=== PATIENT | female | born 2000 | race African-American/Black ===

== ENCOUNTER 2019-04-01 16:22 | Emergency (ER) | payer OTHER ==
--- NOTE | 2019-04-01 19:31 | ED ---
Complex/Multi-Sys Presentation - History Of Current Complaint Chief Complaint: EDFluSymptoms Time Seen by Provider: 04/01/19 18:59 - Allergies/Home Medications Allergies/Adverse Reactions: Allergies Allergy/AdvReac Type Severity Reaction Status Date / Time No Known Allergies Allergy Verified 04/01/19 16:35 Home Medications: Home Medications NK [No Home Medications Reported] 04/01/19 [History Confirmed 04/01/19] PMH/Surg Hx/FS Hx/Imm Hx Respiratory History: Reports: Hx Asthma - Immunization History Immunizations Up to Date: Yes Infectious Disease History: No Infectious Disease History: Denies: Traveled Outside the [place] in Last 30 Days - Social History Alcohol Use: Occasionally Substance Use Type: Reports: None Smoking Status (MU): Never Smoked Tobacco Physical Exam Vital Signs On Initial Exam: Initial Vitals Temp Pulse Resp BP Pulse Ox 98.6 F 84 18 161/91 100 04/01/19 16:33 04/01/19 16:33 04/01/19 16:33 04/01/19 16:33 04/01/19 16:33 Diagnostics - Vital Signs Vital Signs Temp Pulse Resp BP Pulse Ox 04/01/19 18:32 98.8 F 77 18 129/74 100 04/01/19 16:33 98.6 F 84 18 161/91 100 - Laboratory Lab Statement: Any lab studies that have been ordered have been reviewed, and results considered in the medical decision making process. Discharge ED - Discharge Plan Referrals: No Primary Care Phys,NOPCP [Primary Care Provider] - - Attestation Statements Document Initiated by Scribe: Yes
--- NOTE | 2019-04-01 19:47 | ED ---
Influenza-Like Illness - HPI Summary HPI Summary: This pt is a 18 Y/O F presenting to [facility] with a CC of being sick for 3 weeks intermittently and states that she believes that she has a viral syndrome. She states that since 03/30/19 she has been coughing excessively and has been unable to sleep. She states that she had a fever 2 weeks ago and states that currently she has had no fever. She states that she has a sore throat. She denies any pain in her ears. She has a PMHx of Asthma and takes an albuterol inhaler. She has no aggravating factors or alleviating factors. She also states that she has a PMHx of MS and takes Gelena. - History of Current Complaint Chief Complaint: EDFluSymptoms Time Seen by Provider: 04/01/19 18:59 Hx Obtained From: Patient Onset/Duration: Gradual Onset, Lasting Weeks - 3, Still Present, Worse Since Severity: Mild Associated Signs & Symptoms: Negative - pain in her ears, Fever - states that she had one 2 weeks ago but is currently absent of a fever., Sore Throat - Allergy/Home Medications Allergies/Adverse Reactions: Allergies Allergy/AdvReac Type Severity Reaction Status Date / Time No Known Allergies Allergy Verified 04/01/19 16:35 Home Medications: Home Medications NK [No Home Medications Reported] 04/01/19 [History Confirmed 04/01/19] PMH/Surg Hx/FS Hx/Imm Hx Previously Healthy: Yes Respiratory History: Reports: Hx Asthma Neurological History: Reports: Other Neuro Impairments/Disorders - MS - Immunization History Immunizations Up to Date: Yes Infectious Disease History: No Infectious Disease History: Denies: Traveled Outside the [place] in Last 30 Days - Family History Known Family History: Positive: Diabetes - Father's side - Social History Occupation: Student - [employer] Lives: Dormitory/Roommates Alcohol Use: Occasionally Hx Substance Use: No Substance Use Type: Reports: None Hx Tobacco Use: No Smoking Status (MU): Never Smoked Tobacco Review of Systems Constitutional: Other - decreased sleep Positive: Fever - states that the highest ocurrance was 2 weeks ago Positive: Sore Throat. Negative: Ear Ache Positive: Cough All Other Systems Reviewed And Are Negative: Yes Physical Exam - Summary Physical Exam Summary: Constitutional: Well-developed, Well-nourished, Alert. (-) Distressed Skin: Warm, Dry HENT: Normocephalic; Atraumatic Eyes: Conjunctiva normal Neck: Musculoskeletal ROM normal neck. (-) JVD, (-) Stridor, (-) Nuchal rigidity Cardio: Rhythm regular, rate normal, Heart sounds normal; Intact distal pulses; Radial pulses are 2+ and symmetric. (-) Murmur Pulmonary/Chest wall: Effort normal. (-) Respiratory distress, (-) Wheezes, (-) Rales Abd: Soft, (-) tenderness, (-) Distension, (-) Guarding, (-) Rebound Musculoskeletal: (-) Edema Lymph: (-) Cervical adenopathy Neuro: Alert, Oriented x3 Psych: Mood and affect Normal Triage Information Reviewed: Yes Vital Signs On Initial Exam: Initial Vitals Temp Pulse Resp BP Pulse Ox 98.6 F 84 18 161/91 100 04/01/19 16:33 04/01/19 16:33 04/01/19 16:33 04/01/19 16:33 04/01/19 16:33 Vital Signs Reviewed: Yes Diagnostics - Vital Signs Vital Signs Temp Pulse Resp BP Pulse Ox 04/01/19 18:32 98.8 F 77 18 129/74 100 04/01/19 16:33 98.6 F 84 18 161/91 100 - Laboratory Lab Statement: Any lab studies that have been ordered have been reviewed, and results considered in the medical decision making process. - Radiology CXR Radiology Interpretation Completed By: Radiologist Summary of Radiographic Findings: No acute cardiopulmonary diseases. Reviewed by the ED physician. Flu Symptom Course/Dx - Course Course Of Treatment: This pt is a 18 Y/O F presenting to [facility] with a CC of being sick for 3 weeks intermittently and states that she believes that she has a viral syndrome. She states that since 03/30/19 she has been coughing excessively and has been unable to sleep. She had a fever 2 weeks ago but states that she has not had one since. All other abnormal lab results are not pertinent to current cc. She will be discharged home with a Dx of viral infection and instructed to follow up with the [facility] to receive a PCP in the area. - Diagnoses Provider Diagnoses: Viral infection Discharge ED - Sign-Out/Discharge Documenting (check all that apply): Patient Departure Patient Received Moderate/Deep Sedation with Procedure: No - Discharge Plan Condition: Stable Disposition: HOME Patient Education Materials: Viral Syndrome (ED) Referrals: [facility] [Outside] No Primary Care Phys,NOPCP [Primary Care Provider] - - Billing Disposition and Condition Condition: STABLE Disposition: Home - Attestation Statements Document Initiated by Scribe: Yes Documenting Scribe: Royce Roberts Provider For Whom Scribe is Documenting (Include Credential): Aron Farr MD Scribe Attestation: Royce Leal, scribed for Aron Farr MD on 04/02/19 at 0750. Status of Scribe Document: Viewed
[2019-04-01 20:04] VITALS: BP 121/77
== END 2019-04-01 20:03 | disposition home or self-care (01) ==
LOC: ED 16:22
DX: B34.9 Viral infection, unspecified (principal); J45.909 Unspecified asthma, uncomplicated; G35 Multiple sclerosis; Z79.899 Other long term (current) drug therapy
CPT/HCPCS: 71046; 99281

== ENCOUNTER 2019-09-04 20:21 | Emergency (ER) | payer MEDICAID ==
[2019-09-04 21:16] LABS: ABS Eosinophils 0.1 10^3/ul (0-0.6); ABS Lymphocytes 0.2 10^3/ul (1.0-4.8); ABS Monocytes 0.5 10^3/ul (0-0.8); ABS Neutrophils 4.1 10^3/ul (1.5-7.7); Eosinophil % 2.2 %; Hematocrit 36 % (35-47); Hemoglobin 12.3 g/dL (12.0-16.0); Lymphocyte % 3.9 %; Mean Corpuscular HGB Conc 34 g/dL (31-36); Mean Corpuscular Hemoglobin 30 pg (27-31); Mean Corpuscular Volume 88 fL (80-97); Mean Platelet Volume 8.7 fL (7.4-10.4); Platelet Count 228 10^3/uL (150-450); Red Cell Distribution Width 14 % (10-15); White Blood Count 4.9 10^3/uL (3.5-10.8)
[2019-09-04] MEDS ORDERED: Dicyclomine CAP* 10 MG PO ONE (21:17)
--- NOTE | 2019-09-04 21:31 | ED ---
Abdominal Pain/Female - HPI Summary HPI Summary: Patient is a 18 y/o F presenting to [facility] with complaints of lower abdominal pain since 1400 09/04/19. She characterizes the pain as "contraction-like". She states that the pain will temporarily resolve for a few minutes and return. Patient reports that this is the fourth similar episode of Sx that she has had in her life and that the episodes of pain typically last three days. She reports that she was evaluated for previous episodes, MRI imaging was done and it was incidentally found that she has MS. Some nausea secondary to the pain is noted. Patient denies fever, chills, vomiting, diarrhea, constipation, dysuria, hematuria, vaginal bleeding/discharge. LNMP was last week and started on . She notes Hx of asthma and scoliosis. PSHx of wisdom teeth removal noted. Patient is on Gilenya for her MS. NKDA reported. She denies cigarette, alcohol, and substance usage. Home medications and allergies are reviewed. Home Medications Medication Instructions Recorded Confirmed Type NK [No Home Medications Reported] 04/01/19 04/01/19 History - History of Current Complaint Chief Complaint: EDAbdPain Stated Complaint: ABD PAIN PER PT Time Seen by Provider: 09/04/19 21:01 Hx Obtained From: Patient Onset/Duration: Lasting Hours, Still Present Timing: Hours Severity Currently: Severe Pain Intensity: 7 Pain Scale Used: 0-10 Numeric Character: Other: - contraction like Associated Signs and Symptoms: Positive: Nausea, Other: - negative - chills. Negative: Fever, Constipation, Urinary Symptoms, Vaginal Bleeding, Vaginal Discharge, Vomiting, Diarrhea Allergies/Adverse Reactions: Allergies Allergy/AdvReac Type Severity Reaction Status Date / Time No Known Allergies Allergy Verified 04/01/19 16:35 Home Medications: Home Medications Dicyclomine CAP* [Bentyl CAP*] 10 mg PO TID PRN #20 cap 09/04/19 [Rx] Fingolimod (NF) [Gilenya] 0.5 mg PO DAILY 09/04/19 [History Confirmed 09/04/19] PMH/Surg Hx/FS Hx/Imm Hx Respiratory History: Reports: Hx Asthma Neurological History: Reports: Other Neuro Impairments/Disorders - MS Infectious Disease History: No Infectious Disease History: Denies: Traveled Outside the [place] in Last 30 Days - Family History Known Family History: Positive: Diabetes - Father's side - Social History Alcohol Use: Occasionally Hx Substance Use: No Substance Use Type: Reports: None Hx Tobacco Use: No Smoking Status (MU): Never Smoked Tobacco Review of Systems Negative: Fever, Chills Gastrointestinal: Other - negative - constipation Positive: Abdominal Pain, Nausea. Negative: Vomiting, Diarrhea Genitourinary: Other - negative - vaginal bleeding Negative: dysuria, discharge, hematuria All Other Systems Reviewed And Are Negative: Yes Physical Exam - Summary Physical Exam Summary: Constitutional: Well-developed, Well-nourished, Alert. (-) Distressed Skin: Warm, Dry HENT: Normocephalic; Atraumatic Eyes: Conjunctiva normal Neck: Musculoskeletal ROM normal neck. (-) JVD, (-) Stridor, (-) Tracheal deviation Cardio: Rhythm regular, rate normal, Heart sounds normal; Intact distal pulses; Radial pulses are 2+ and symmetric. (-) Murmur Pulmonary/Chest wall: Effort normal. (-) Respiratory distress, (-) Wheezes, (-) Rales Abd: Soft, RLQ, LLQ, and suprapubic tenderness noted, (-) Distension, (-) Guarding, (-) Rebound Musculoskeletal: (-) Edema Lymph: (-) Cervical adenopathy Neuro: Alert, Oriented x3 Psych: Mood and affect Normal Triage Information Reviewed: Yes Vital Signs On Initial Exam: Initial Vitals Temp Pulse Resp BP Pulse Ox 97.5 F 83 20 133/96 92 09/04/19 20:23 09/04/19 20:23 09/04/19 20:23 09/04/19 20:23 09/04/19 20:23 Vital Signs Reviewed: Yes Procedures - Sedation Patient Received Moderate/Deep Sedation with Procedure: No Diagnostics - Vital Signs Vital Signs Temp Pulse Resp BP Pulse Ox 09/04/19 20:23 97.5 F 83 20 133/96 92 - Laboratory Result Diagrams: 09/04/19 21:08 09/04/19 21:08 Lab Statement: Any lab studies that have been ordered have been reviewed, and results considered in the medical decision making process. - Ultrasound Appendix Ultrasound Interpretation Completed By: Radiologist Summary of Ultrasound Findings: Nonvisualized appendix with no secondary findings. ED physician has reviewed this report. Abdominal Pain Fem Course/Dx - Course Course Of Treatment: Patient is here with pain in her abdomen that occurs periodically throughout the day today. Patient's had 4 similar episodes to this in the past 5 years. Patient is overall well-appearing with mild tenderness in her lower abdomen. Patient had blood performed which showed a normal CRP and white count. Patient had an ultrasound of her appendix which showed no visualized appendix. Patient was feeling better after Bentyl. Patient's symptoms are not consistent with appendicitis and a CT scan was not obtained. Patient was calm full for discharge and was given very strict return precautions. - Diagnoses Provider Diagnoses: Epigastric abdominal pain Discharge ED - Sign-Out/Discharge Documenting (check all that apply): Patient Departure - discharge - Discharge Plan Condition: Good Disposition: HOME Prescriptions: Dicyclomine CAP* [Bentyl CAP*] 10 mg PO TID PRN #20 cap PRN Reason: abdominal cramping Patient Education Materials: Acute Abdominal Pain (ED), Abdominal Pain (ED) Referrals: [facility] [Provider Group] - 1 Week Additional Instructions: Follow up with [facility] in 1 week to have liver enzymes rechecked. Come back with severe abdominal pain, specifically in the RLQ or high fever, nausea or vomiting. PLEASE RETURN TO EMERGENCY DEPARTMENT FOR ANY NEW OR WORSENING SYMPTOMS. Please follow up with your primary care physician. Please make all follow-ups in 1-3 days unless I advise you otherwise. - Billing Disposition and Condition Condition: GOOD Disposition: Home - Attestation Statements Document Initiated by Vishal: Yes Documenting Scribe: Yaw Duval Provider For Whom Vishal is Documenting (Include Credential): Carlos Welch MD Scribe Attestation: I, Yaw Duval, scribed for Carlos Welch MD on 09/04/19 at 2327. Scribe Documentation Reviewed: Yes Provider Attestation: The documentation as recorded by the Royce masters Jacob Kolenda accurately reflects the service I personally performed and the decisions made by me, Carlos Welch MD Status of Scribe Document: Viewed
[2019-09-04 21:34] LABS: ALT 83 U/L (7-52); AST 44 U/L (13-39); Albumin 4.2 g/dL (3.2-5.2); Albumin/Globulin Ratio 1.5 (1-3); Alkaline Phosphatase 92 U/L (34-104); Anion Gap 6 mmol/L (2-11); BUN/Creatinine Ratio 20.9 (8-20); Blood Urea Nitrogen 14 mg/dL (6-24); C Reactive Protein 6.42 mg/L (<8.01); CO2 Carbon Dioxide 26 mmol/L (22-32); Calcium 8.8 mg/dL (8.6-10.3); Chloride 106 mmol/L (101-111); EGFR African American 137.2 (>60); EGFR Non-African American 113.4 (>60); Globulin 2.8 g/dL (2-4); Glucose 94 mg/dL (70-100); Potassium 4.2 mmol/L (3.5-5.0); Sodium 138 mmol/L (135-145)
[2019-09-04 21:40] LABS: HCG Pregnancy < 0.60 mIU/mL
[2019-09-04 22:06] VITALS: BP 124/75
== END 2019-09-04 22:44 | disposition home or self-care (01) ==
LOC: ED 20:21
DX: R10.13 Epigastric pain (principal); R11.0 Nausea; Z79.899 Other long term (current) drug therapy
CPT/HCPCS: 36415; 76705; 80053; 83690; 84702; 85025; 86140; 99283; A9270-GY